=== PATIENT | male | born 1965 | race Caucasian/White ===

== ENCOUNTER → 2021-09-09 09:50 | Outpatient (BNVA) | payer BC, SELFPAY | PROVIDERS: Visit Provider Nurse Practitioner Family | DX: M25.511 Pain in right shoulder (principal); M25.512 Pain in left shoulder | CPT/HCPCS: 73030 ==

== ENCOUNTER → 2021-11-02 13:01 | Outpatient (BNVA) | payer BC, MEDICAID, SELFPAY | PROVIDERS: Family Provider Nurse Practitioner Family; Visit Provider Student in an Organized Health Care Education/Training Program | DX: M12.812 Other specific arthropathies, not elsewhere classified, left shoulder (principal); M75.41 Impingement syndrome of right shoulder; M25.512 Pain in left shoulder; G56.02 Carpal tunnel syndrome, left upper limb; M25.519 Pain in unspecified shoulder; M25.511 Pain in right shoulder | CPT/HCPCS: 20610; 73030; 99204; J3301 ==

== ENCOUNTER → 2022-02-22 12:31 | Outpatient (BNVA) | payer BC, MEDICAID, SELFPAY | PROVIDERS: Family Provider Nurse Practitioner Family; Visit Provider Student in an Organized Health Care Education/Training Program | DX: R20.0 Anesthesia of skin (principal); R20.2 Paresthesia of skin; M75.41 Impingement syndrome of right shoulder; M25.511 Pain in right shoulder; M25.512 Pain in left shoulder | CPT/HCPCS: 36415; 85651; 86140 ==

== ENCOUNTER → 2022-07-12 09:55 | Outpatient (BNVA) | payer BC, MEDICAID, SELFPAY | PROVIDERS: Family Provider Nurse Practitioner Family; PCP Nurse Practitioner Family; Referring Provider Internal Medicine; Visit Provider Internal Medicine | DX: M35.3 Polymyalgia rheumatica (principal); Z79.899 Other long term (current) drug therapy | CPT/HCPCS: 72100; 73502; 80053; 85025; 85651; 86140; 86160; 86162; 86200; 86235; 86255; 86376; 86704; 86803; 87340 ==

== ENCOUNTER 2024-07-19 09:46 | Inpatient (IN) | payer BC, SELFPAY ==
--- NOTE | 2024-07-19 09:47 | ECG_ITS ---
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 Measurements Intervals [place] Rate: 78 P: 34 [place]: 150 QRS: -69 QRSD: 101 T: 81 QT: 340 QTc: 387 Interpretive Statements SINUS RHYTHM PATTERN CONSISTENT WITH PULMONARY DISEASE LEFT ANTERIOR FASCICULAR BLOCK [QRS AXIS <= -45, QR IN I, RS IN II] NONSPECIFIC T-WAVE ABNORMALITY No previous ECG available for comparison Electronically Signed On 07-20-2024 13:43:56 CDT by Chao Uriarte M.D. [id number]
--- NOTE | 2024-07-19 09:47 | XR_ITS ---
WS: [id number] XR chest 1V portable [id number] REASON FOR EXAM: chest pain FINDINGS: Mild tortuosity of the thoracic aorta. Normal heart size. Calcified granulomatous disease bilaterally. No acute pulmonary parenchymal or pleural abnormality. Mild degenerative spondylosis in the thoracic spine. XR/XR chest 1V portable [id number] IMPRESSION: No acute chest abnormality.
[2024-07-19 09:58] VITALS: BP 150/91; PULSE 77; RESP 18; TEMP 36.8; O2SAT 98; BMI 28.1
--- NOTE | 2024-07-19 10:06 | W.ED.CHESTPA ---
Documented by User: SABINO Salgado 07/19/24 13:24 HPI - Chest Pain General: Chief Complaint: Chest Pain Stated Complaint: CP SOB Time Seen by Provider: 07/19/24 09:47 Source: patient and family Mode of arrival: ambulatory Limitations: no limitations History of Present Illness: Patient is a 58-year-old male presents to ED today along with his significant other for evaluation of chest pain. Patient states he has a history of coronary artery syndrome with 2 previous MIs and 2 previous cardiac stents. Last stent was placed in 2019. Patient states he has not had any cardiology follow-up following either one of his stents reporting lack of insurance. Patient states yesterday evening while watching TV he began developing substernal chest pain. He states he was diaphoretic and fatigued. He states he laid down to go to sleep around 6 to 7 PM which was uncharacteristic for him but could not sleep due to the discomfort. He states he took a total of 2 nitro which helped his discomfort and he was able to sleep. Patient states he felt good when he first awoke this morning but later noticed pain returned thus prompting his medical evaluation. He states he feels short of breath. He states with his previous MIs it felt like his chest was getting kicked by a horse. Today he states it feels different and that it feels like his rib cage is being torn apart. Pain does not seem to be reproducible with palpation or movement. He has not had any cough or recent URI. PMH significant for CAD, hyperlipidemia, daily smoking. No known history of hypertension although he is hypertensive upon arrival with a BP of 150/91. MD complaint: chest pain Pertinent past history: coronary artery disease and prior [place] Onset (ago): day(s) (yesterday evening) Timing of current episode: episodic Prior episodes: Yes Onset: during rest Pain location: substernal Pain radiation: none Severity: moderate Relieving factors: other (nitro) Exacerbating factors: nothing Associated symptoms: Reports dyspnea; Deny abdominal pain, fever(s), nausea, palpitations, syncope or vomiting Treatment prior to arrival: none Risk Factors: Coronary artery disease risk factors: smoking history and hyperlipidemia Thoracic aortic dissection risk factors: none Related Data Home Medications ?Medication ?Instructions ?Recorded ?Confirmed nitroglycerin 0.4 mg sublingual 0.4 mg sublingual Q5M PRN heart 07/19/24 07/19/24 tablet pain Previous Rx's ?Medication ?Instructions ?Recorded aspirin 81 mg tablet,delayed 81 mg PO DAILY #30 tabs 07/20/24 release (M[place]esh Low Dose Aspirin) clopidogrel 75 mg tablet 75 mg PO DAILY #30 tabs 07/20/24 pantoprazole 40 mg tablet,delayed 40 mg PO DAILY #30 tabs 07/20/24 release atorvastatin 40 mg tablet 40 mg PO QPM #30 tabs 07/21/24 carvedilol 3.125 mg tablet 3.125 mg PO BID #60 tabs 07/21/24 lisinopril 2.5 mg tablet 2.5 mg PO DAILY #30 tabs 07/21/24 Allergies Allergy/AdvReac Type Severity Reaction Status Date / Time No Known Allergies Allergy Verified 07/23/22 10:01 Review of Systems Const: Denies: fever(s) or chills Eyes: Denies: change in vision or blurry vision Card: Reports: chest pain; Denies: palpitations, irregular heart rhythm, edema, swelling of feet/ankles, lightheadedness, syncope, pre-syncope, dyspnea on exertion, orthopnea, leg pain with exertion or acrocyanosis Resp: Reports: dyspnea; Denies: productive cough, non-productive cough, wheezing, stridor, pain on inspiration, change in phlegm color, hemoptysis or chest congestion GI: Reports: heartburn (chronic); Denies: abdominal pain, nausea, vomiting or diarrhea : Denies: flank pain, difficulty urinating or dysuria Musc: Denies: neck pain, back pain, extremity pain, extremity swelling or joint pain Skin/Breast: Denies: rash Neuro: Denies: headache(s), numbness in extremities, weakness in extremities, sensory changes or dizziness PFS ED PFSH: Medical History Polymyalgia rheumatica Left carpal tunnel syndrome Rotator cuff arthropathy of left shoulder Rotator cuff impingement syndrome of right shoulder Bilateral shoulder pain Social History Smoking and tobacco/nicotine status: never used tobacco/nicotine Alcohol intake: never Substance/Drug Use: never Physical Exam Const: COMMON NORMALS: no acute distress, average body habitus, patient oriented x3, no limitations, healthy appearing, alert and well nourished GENERAL APPEARANCE: cooperative ORIENTATION/CONSCIOUSNESS: Yes awake, Yes oriented to person, Yes oriented to place and Yes oriented to time HENMT: COMMON NORMALS: normocephalic and atraumatic HEAD & SCALP: normal to inspection, normocephalic and atraumatic Neck/C-Spine: COMMON NORMALS: full ROM, no lymphadenopathy, supple and no meningeal signs Chest: COMMONS NORMALS: normal inspection of the chest Resp: COMMON NORMALS: normal respiratory effort and clear to auscultation bilaterally AUSCULTATION: clear to auscultation bilaterally Cardio: COMMON NORMALS: regular rate and regular rhythm RATE: regular rate RHYTHM: regular rhythm GI: COMMON NORMALS: Normal to inspection, nondistended, normoactive bowel sounds present, Soft to palpation, non-tender, No hepatosplenomegaly present and no masses PALPATION: Yes Soft to palpation and Yes No hepatosplenomegaly present : COMMON NORMALS: Yes no CVA tenderness BLADDER/KIDNEY EXAM: Yes no CVA tenderness Back/Pelvis: COMMON NORMALS: no CVA tenderness and thoracic and lumbar spine normal to inspection Extremity: COMMON NORMALS: normal to inspection, capillary refill normal, no clubbing, cyanosis or edema, no calf tenderness and no pedal edema GENERAL: Yes normal exam except as noted Neuro: COMMON NORMALS: patient oriented x3, moves all extremities, no focal motor deficits and no sensory deficits noted SENSORIUM/ORIENTATION: Yes alert, Yes oriented to person, Yes oriented to place and Yes oriented to time MENINGEAL SIGNS: Yes no meningeal signs Skin: COMMON NORMALS: no rashes or lesions noted GENERAL SKIN EXAM: no rashes or lesions noted Course Consultations: Consultation #1: Dr. Butterfield-accepts hospitalization to [facility] Vital Signs: Vital signs: Vital Signs Temperature 98.2 F 07/21/24 07:42 Pulse Rate 86 07/21/24 11:48 Respiratory Rate 16 07/21/24 11:48 Blood Pressure 123/94 07/21/24 11:48 Pulse Oximetry 94 07/21/24 11:48 Oxygen Delivery Me thod Room Air 07/21/24 07:42 MDM - Chest Pain Medical Decision Making The patient is a 58-year-old male here for concerns of chest pain that was alleviated by nitroglycerin yesterday. Chest pain started again this morning after awakening. It is again alleviated by nitro here in the emergency department. Patient has previous history of coronary artery disease with 2 previous cardiac stents, he is an everyday smoker, known hyperlipidemia noncompliant on his medications. Denies history of hypertension although has carvedilol and lisinopril listed on medications and has been hypertensive here. He is not taking carvedilol and lisinopril at home. At this point due to patient's history and risk factors I think he requires hospitalization for stress testing/cardiac rule out. His EKG showing nonspecific T wave abnormalities. His troponins are unremarkable. Heart score at this time would be 6. Spoke to hospitalist Dr. Butterfield who will admit to CSU. Dr. Sahu aware of patient will place admit orders. Medical Records I reviewed the patient's medical records. Lab Data I reviewed the patient's lab results. 07/21/24 03:00 07/21/24 04:49 Radiology Impressions Chest X-Ray 07/19/24 09:47 IMPRESSION: No acute chest abnormality. Laboratory Results WBC 10.54 10^3/uL (3.29-11.43) 07/20/24 03:02 RBC 4.68 10^6/uL (3.85-5.65) 07/20/24 03:02 Hgb 14.00 g/dL (11.27-16.99) 07/20/24 03:02 Hct 45.1 % (37-53) 07/20/24 03:02 MCV 96.4 fl (82-101) 07/20/24 03:02 MCH 29.9 pg (27-33) 07/20/24 03:02 MCHC 31.0 g/dL (30-55) 07/20/24 03:02 RDW 14.2 % (12.1-15.1) 07/20/24 03:02 Plt Count 297 10^3/cmm (157-399) 07/20/24 03:02 MPV 8.9 fL (7.4-10.4) 07/20/24 03:02 Neut % (Auto) 56.5 % 07/20/24 03:02 Lymph % (Auto) 33.3 % 07/20/24 03:02 [place] % (Auto) 7.6 % 07/20/24 03:02 Eos % (Auto) 1.9 % 07/20/24 03:02 Baso % (Auto) 0.4 % 07/20/24 03:02 Neut # (Auto) 5.96 10^3/uL (1.8-7.7) 07/20/24 03:02 Lymph # (Auto) 3.5 10^3/uL (0.8-4.8) 07/20/24 03:02 [place] # (Auto) 0.8 10^3/uL (0.2-0.9) 07/20/24 03:02 Eos # (Auto) 0.2 10^3/uL (0.0-0.8) 07/20/24 03:02 Baso # (Auto) 0.0 10^3/uL (0.0-0.1) 07/20/24 03:02 Nucleated RBC % (auto) 0 % 07/20/24 03:02 Nucleated RBCs # 0.0 /100WBC 07/20/24 03:02 Sodium 141 mmol/L (136-145) 07/20/24 03:02 Potassium 4.1 mmol/L (3.5-5.1) 07/20/24 03:02 Chloride 108 mmol/L (98-107) H 07/20/24 03:02 Carbon Dioxide 23 mmol/L (22-29) 07/20/24 03:02 Anion Gap 14.1 (5-19) 07/20/24 03:02 BUN 14 mg/dL (6-20) 07/20/24 03:02 Creatinine 1.0 mg/dL (0.7-1.2) 07/20/24 03:02 GFR Calculation 77.0 mL/min (90-130) L 07/20/24 03:02 Glucose 107 mg/dL (65-115) 07/20/24 03:02 Estimat Average Glucose 131 07/19/24 10:04 Hemoglobin A1c 6.2 % (4.0-6.0) H 07/19/24 10:04 Calculated Osmolality 293 mOsm/kg (285-295) 07/20/24 03:02 Calcium 8.6 mg/dL (8.5-10.5) 07/20/24 03:02 Magnesium 2.1 mg/dL (1.7-2.3) 07/20/24 03:02 Total Bilirubin 0.4 mg/dL (0.15-1.2) 07/20/24 03:02 AST 16 U/L (0-40) 07/20/24 03:02 ALT 12 U/L (0-41) 07/20/24 03:02 Alkaline Phosphatase 110 U/L (40-130) 07/20/24 03:02 Troponin T Baseline 14 ng/L (0-15) 07/19/24 10:04 Troponin T 120 Minute 13.58 ng/L (0-15) 07/19/24 11:57 Delta Troponin T -0.42 ABS# (0-10) L 07/19/24 11:57 Troponin T Hi Sens 6Hr 16.12 ng/L (0-15) H 07/19/24 15:48 Troponin T Hi Sens 6Hr Delta 2.12 ng/L (0-12) 07/19/24 15:48 Total Protein 6.7 g/dL (6.6-8.7) 07/20/24 03:02 Albumin 3.6 g/dL (3.5-5.2) 07/20/24 03:02 Globulin 3.1 g/dL (1.3-4.6) 07/20/24 03:02 Triglycerides 136 mg/dL (0-150) 07/19/24 10:04 Cholesterol 212 mg/dL (0-200) H 07/19/24 10:04 LDL Cholesterol, Calc 145 mg/dL (50-129) H 07/19/24 10:04 HDL Cholesterol 40 mg/dL (60-100) L 07/19/24 10:04 LDL/HDL Ratio 3.63 RATIO (0.00-3.22) H 07/19/24 10:04 Cholesterol/HDL Ratio 5.30 mg/dL (1.0-5.00) H 07/19/24 10:04 TSH 3.89 uIU/mL (0.27-4.20) 07/19/24 10:04 All radiology interpretation(s) finalized by discharge Discharge Plan Discharge Patient Disposition: Admitted As Inpatient Admit Provider: Jaja Butterfield Clinical Impression: Chest pain CAD (coronary artery disease) Qualifiers: Coronary Disease-Associated Artery/Lesion type: unspecified vessel or lesion type [place] vs. 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[place] [employer] Documented by User: Benito Sahu DO 07/23/24 06:20 HPI - Chest Pain General: Chief Complaint: Chest Pain Stated Complaint: CP SOB Time Seen by Provider: 07/19/24 09:47 Related Data Home Medications ?Medication ?Instructions ?Recorded ?Confirmed nitroglycerin 0.4 mg sublingual 0.4 mg sublingual Q5M PRN heart 07/19/24 07/19/24 tablet pain Previous Rx's ?Medication ?Instructions ?Recorded aspirin 81 mg tablet,delayed 81 mg PO DAILY #30 tabs 07/20/24 release ([place] Low Dose Aspirin) clopidogrel 75 mg tablet 75 mg PO DAILY #30 tabs 07/20/24 pantoprazole 40 mg tablet,delayed 40 mg PO DAILY #30 tabs 07/20/24 release atorvastatin 40 mg tablet 40 mg PO QPM #30 tabs 07/21/24 carvedilol 3.125 mg tablet 3.125 mg PO BID #60 tabs 07/21/24 lisinopril 2.5 mg tablet 2.5 mg PO DAILY #30 tabs 07/21/24 Allergies Allergy/AdvReac Type Severity Reaction Status Date / Time No Known Allergies Allergy Verified 07/23/22 10:01 PFSH ED PFSH: Medical History Polymyalgia rheumatica Left carpal tunnel syndrome Rotator cuff arthropathy of left shoulder Rotator cuff impingement syndrome of right shoulder Bilateral shoulder pain Social History Smoking and tobacco/nicotine status: never used tobacco/nicotine Alcohol intake: never Substance/Drug Use: never Course Vital Signs: Vital signs: Vital Signs Temperature 98.2 F 05/10/25 07:42 Pulse Rate 86 07/21/24 11:48 Respiratory Rate 16 07/21/24 11:48 Blood Pressure 123/94 07/21/24 11:48 Pulse Oximetry 94 07/21/24 11:48 Oxygen Delivery Me thod Room Air 07/21/24 07:42 MDM - Chest Pain Medical Decision Making The patient is a 58-year-old male here for concerns of chest pain that was alleviated by nitroglycerin yesterday. Chest pain started again this morning after awakening. It is again alleviated by nitro here in the emergency department. Patient has previous history of coronary artery disease with 2 previous cardiac stents, he is an everyday smoker, known hyperlipidemia noncompliant on his medications. Denies history of hypertension although has carvedilol and lisinopril listed on medications and has been hypertensive here. He is not taking carvedilol and lisinopril at home. At this point due to patient's history and risk factors I think he requires hospitalization for stress testing/cardiac rule out. His EKG showing nonspecific T wave abnormalities. His troponins are unremarkable. Heart score at this time would be 6. Spoke to hospitalist Dr. Butterfield who will admit to CSU. Dr. Sahu aware of patient will place admit orders. Chart reviewed and patient discussed with midlevel. Agree with assessment and plan. Lab Data 07/21/24 03:00 07/21/24 04:49 Radiology Impressions Chest X-Ray 07/19/24 09:47 IMPRESSION: No acute chest abnormality. Laboratory Results WBC 10.54 10^3/uL (3.29-11.43) 07/20/24 03:02 RBC 4.68 10^6/uL (3.85-5.65) 07/20/24 03:02 Hgb 14.00 g/dL (11.27-16.99) 07/20/24 03:02 Hct 45.1 % (37-53) 07/20/24 03:02 MCV 96.4 fl (82-101) 07/20/24 03:02 MCH 29.9 pg (27-33) 07/20/24 03:02 MCHC 31.0 g/dL (30-55) 07/20/24 03:02 RDW 14.2 % (12.1-15.1) 07/20/24 03:02 Plt Count 297 10^3/cmm (157-399) 07/20/24 03:02 MPV 8.9 fL (7.4-10.4) 07/20/24 03:02 Neut % (Auto) 56.5 % 07/20/24 03:02 Lymph % (Auto) 33.3 % 07/20/24 03:02 [place] % (Auto) 7.6 % 07/20/24 03:02 Eos % (Auto) 1.9 % 07/20/24 03:02 Baso % (Auto) 0.4 % 07/20/24 03:02 Neut # (Auto) 5.96 10^3/uL (1.8-7.7) 07/20/24 03:02 Lymph # (Auto) 3.5 10^3/uL (0.8-4.8) 07/20/24 03:02 [place] # (Auto) 0.8 10^3/uL (0.2-0.9) 07/20/24 03:02 Eos # (Auto) 0.2 10^3/uL (0.0-0.8) 07/20/24 03:02 Baso # (Auto) 0.0 10^3/uL (0.0-0.1) 07/20/24 03:02 Nucleated RBC % (auto) 0 % 07/20/24 03:02 Nucleated RBCs # 0.0 /100WBC 07/20/24 03:02 Sodium 141 mmol/L (136-145) 07/20/24 03:02 Potassium 4.1 mmol/L (3.5-5.1) 07/20/24 03:02 Chloride 108 mmol/L (98-107) H 07/20/24 03:02 Carbon Dioxide 23 mmol/L (22-29) 07/20/24 03:02 Anion Gap 14.1 (5-19) 07/20/24 03:02 BUN 14 mg/dL (6-20) 07/20/24 03:02 Creatinine 1.0 mg/dL (0.7-1.2) 07/20/24 03:02 GFR Calculation 77.0 mL/min (90-130) L 07/20/24 03:02 Glucose 107 mg/dL (65-115) 07/20/24 03:02 Estimat Average Glucose 131 07/19/24 10:04 Hemoglobin A1c 6.2 % (4.0-6.0) H 07/19/24 10:04 Calculated Osmolality 293 mOsm/kg (285-295) 07/20/24 03:02 Calcium 8.6 mg/dL (8.5-10.5) 07/20/24 03:02 Magnesium 2.1 mg/dL (1.7-2.3) 07/20/24 03:02 Total Bilirubin 0.4 mg/dL (0.15-1.2) 07/20/24 03:02 AST 16 U/L (0-40) 07/20/24 03:02 ALT 12 U/L (0-41) 07/20/24 03:02 Alkaline Phosphatase 110 U/L (40-130) 07/20/24 03:02 Troponin T Baseline 14 ng/L (0-15) 07/19/24 10:04 Troponin T 120 Minute 13.58 ng/L (0-15) 07/19/24 11:57 Delta Troponin T -0.42 ABS# (0-10) L 07/19/24 11:57 Troponin T Hi Sens 6Hr 16.12 ng/L (0-15) H 07/19/24 15:48 Troponin T Hi Sens 6Hr Delta 2.12 ng/L (0-12) 07/19/24 15:48 Total Protein 6.7 g/dL (6.6-8.7) 07/20/24 03:02 Albumin 3.6 g/dL (3.5-5.2) 07/20/24 03:02 Globulin 3.1 g/dL (1.3-4.6) 07/20/24 03:02 Triglycerides 136 mg/dL (0-150) 07/19/24 10:04 Cholesterol 212 mg/dL (0-200) H 07/19/24 10:04 LDL Cholesterol, Calc 145 mg/dL (50-129) H 07/19/24 10:04 HDL Cholesterol 40 mg/dL (60-100) L 07/19/24 10:04 LDL/HDL Ratio 3.63 RATIO (0.00-3.22) H 07/19/24 10:04 Cholesterol/HDL Ratio 5.30 mg/dL (1.0-5.00) H 07/19/24 10:04 TSH 3.89 uIU/mL (0.27-4.20) 07/19/24 10:04 Discharge Plan Discharge Patient Disposition: Admitted As Inpatient Admit Provider: Jaja Butterfield Clinical Impression: Chest pain CAD (coronary artery disease) Qualifiers: Coronary Disease-Associated Artery/Lesion type: unspecified vessel or lesion type [place] vs. 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
[2024-07-19 10:11] LABS: Basophils # 0.1 10^3/uL (0.0-0.1); Basophils % 0.5 %; Eosinophils # 0.1 10^3/uL (0.0-0.8); Eosinophils % 1.1 %; Hematocrit 49.3 % (37-53); Lymphocytes # 3.3 10^3/uL (0.8-4.8); Lymphocytes % 28.8 %; Mean Corpuscular Hemoglobin 30.7 pg (27-33); Mean Corpuscular Volume 95.9 fl (82-101); Mean Platelet Volume 8.6 fL (7.4-10.4); Monocytes # 0.8 10^3/uL (0.2-0.9); Monocytes % 6.8 %; Neutrophils # 7.13 10^3/uL (1.8-7.7); Neutrophils % 62.5 %; Nucleated Red Blood Cells % 0 %; Platelet Count 324 10^3/cmm (157-399); Red Blood Count 5.14 10^6/uL (3.85-5.65); Red Cell Distribution Width 14.4 % (12.1-15.1)
[2024-07-19] MEDS: nitroglycerin 0.4 mg sublingual Tablet SUBLINGUAL (10:20)
[2024-07-19 10:27] LABS: Troponin(5th) Baseline 14 ng/L (0-15)
[2024-07-19 10:31] LABS: Alanine Aminotransferase 14 U/L (0-41); Albumin Level 4.3 g/dL (3.5-5.2); Alkaline Phosphatase 133 U/L (40-130); Anion Gap 18.2 (5-19); Aspartate Amino Transferase 14 U/L (0-40); Blood Urea Nitrogen 12 mg/dL (6-20); Calcium 9.5 mg/dL (8.5-10.5); Carbon Dioxide 24 mmol/L (22-29); Chloride 104 mmol/L (98-107); Creatinine Clr Calc Pharmacy 83.3675; Globulin 3.1 g/dL (1.3-4.6); Glucose 108 mg/dL (65-115); Osmolality Calculated 294 mOsm/kg (285-295); Potassium 4.2 mmol/L (3.5-5.1); Sodium 142 mmol/L (136-145); Total Bilirubin 0.7 mg/dL (0.15-1.2); Total Protein 7.4 g/dL (6.6-8.7)
--- NOTE | 2024-07-19 10:32 | PC.PHAR ---
Patient states he doesn't take his medication regularly . Spouse had a bag with medications that patient states he takes once in a while. Patient states he didn't have insurance for a little bit . I listed all medications in the bag . Last fill dates are all 07/18/2020. Medication are very old, and have .
[2024-07-19] MEDS: lidocaine 2% viscous 15 ML, aluminum-mag hydrox-simethicon 30 ML, sucralfate oral liq 1 GM PO (11:29)
[2024-07-19 12:29] LABS: Troponin 5 2HR 13.58 ng/L (0-15)
[2024-07-19 12:32] LABS: Troponin 5 2HR Delta -0.42 ABS# (0-10)
--- NOTE | 2024-07-19 12:51 | ECG_ITS ---
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
[2024-07-19] MEDS: carvedilol 3.125 mg Tablet PO ×2 (13:40→20:40)
[2024-07-19] MEDS: lisinopril 2.5 mg Tablet PO (13:40)
[2024-07-19 13:41] VITALS: BP 144/100; PULSE 80; RESP 16; O2SAT 98
--- NOTE | 2024-07-19 14:53 | PM.HP ---
Providers/Chief Complaint Admitting Physician: Jaja Butterfield MD Primary Care Provider: Yen Camarena Chief Complaint: CP SOB History of Present Illness Filipe Mcginnis is a 58 year old male With past medical history of polymyalgia rheumatica, left carpal tunnel syndrome, rotator cuff arthropathy of left shoulder and right shoulder, bilateral shoulder pain, CAD status post 2 stents and CA twice in the past 2011 and 2018. Patient currently has 2 stents diagonal branch and second place unknown presented to the hospital for chest pain. He states he had his first angiogram done at [facility] in 2011 and second 1 at [facility] in 2019. He says he has been having chest pain since yesterday which was associated with sweating vomiting and nausea. He took 2 nitros 5 to 10 minutes apart and the pain improved. Subsequently he had a good day went to sleep and when he woke up the pain restarted which was again associated with sweating. He states right now he is chest pain-free. He received nitro in the hospital and received a GI cocktail. He states he has a history of hiatal hernia and my stomach is very messed up . I have had stomach issues all my life. He states that every time he takes a blood thinner specifically the Plavix after a few days he starts to have rectal bleed which is usually very dark. At 1 point he called it motor oil in the past. Somewhat of a poor historian. He states that he used to be on ranitidine in the past however it was taken off the market as per patient therefore since then he has not been in any kind of anti-GERD agents. He states no one has ever addressed his heartburn . Furthermore patient states that he believes that the tablets are very tough on his stomach and every 1 to 3 months he may have rectal bleed. He is not sure if he has hemorrhoids. He has never had EGD colonoscopy. I discussed with him the possibility of EGD colonoscopy for further investigation including the possibility of a cardiac stress test. Patient states that he is very worried and anxious and stressed out now that I am discussing all this with him. He states nobody has ever told him that he would possibly need these tests. I discussed with him that he has a right to decline certain care however would be my recommendation to further investigate GERD, fecal occult blood test with the possibility of EGD colonoscopy prior to having a coronary angiogram. I discussed with him in detail that if he does receive a stent and is unable to take aspirin Plavix for at least 1 year there is a risk of stent thrombosis. For now we decided we will proceed with stress testing in a.m. patient's is present at bedside. Patient previously did not have insurance but now has it and therefore was lost to follow-up at 1 point. Medications/Allergies Home Medications ?Medication ?Instructions ?Recorded ?Confirmed ?Last Taken ?Type aspirin 81 mg tablet,delayed 81 mg PO DAILY 07/19/24 07/19/24 07/16/24 History release (Mukesh Low Dose Aspirin) atorvastatin 40 mg tablet 40 mg PO QPM 07/19/24 07/19/24 07/16/24 History carvedilol 3.125 mg tablet 3.125 mg PO BID 07/19/24 07/19/24 Unknown History lisinopril 2.5 mg tablet 2.5 mg PO DAILY 07/19/24 07/19/24 Unknown History nitroglycerin 0.4 mg sublingual 0.4 mg sublingual Q5M PRN heart 07/19/24 07/19/24 07/18/24 20:00 History tablet pain Allergies Allergy/AdvReac Type Severity Reaction Status Date / Time No Known Allergies Allergy Verified 07/23/22 10:01 PFSH Acute PFSH: Medical History Polymyalgia rheumatica Left carpal tunnel syndrome Rotator cuff arthropathy of left shoulder Rotator cuff impingement syndrome of right shoulder Bilateral shoulder pain Social History Smoking and tobacco/nicotine status: never used tobacco/nicotine Alcohol intake: never Substance/Drug Use: never Vitals/I&O/Wt Last Vital Signs Temp 98.2 F 07/19/24 09:58 Pulse 80 07/19/24 13:41 Resp 16 07/19/24 13:41 BP 144/100 07/19/24 13:41 Pulse Ox 98 07/19/24 13:41 O2 Del Method Room Air 07/19/24 13:41 Weight last 48 hrs Weight 81.647 kg Physical Exam Narrative: General: Alert oriented x3, patient seen sitting up in bed appearing comfortable at this time with at bedside. No conversational dyspnea on denies any chest pain at this time. HEENT: Normocephalic, atraumatic, EOMI, breathing room air. Cardio: Regular rate rhythm, normal S1-S2, Respiratory: Good bilateral air entry, no wheezes no rhonchi appreciated GI: Abdomen soft, nontender, nondistended, bowel sounds + Behavior: Appropriate and cooperative Extremities: Pulses 2+, no edema, no cyanosis Data 07/19/24 10:04 07/19/24 10:04 A&P Assessment and plan (1) Chest pain: (2) CAD (coronary artery disease): (3) Polymyalgia rheumatica: (4) HLD (hyperlipidemia): (5) History of CA (myocardial infarction): (6) Status post percutaneous transluminal angioplasty ([employer]) with stent placement: Plan #Typical chest pain, possibly unstable angina #GERD #History of hiatal hernia #History of polymyalgia rheumatica #Known CAD status post PCI x 2, status post 2 MIs #Hyperlipidemia #Intermittent dark stools every 1 to 3 months if taking aspirin Plavix together however currently not having any issues - Troponins ordered. [place] at 2 hours negative ? Continue aspirin atorvastatin carvedilol lisinopril ? Nitropaste every 6 hours as needed if chest pain recurs ? GI cocktail to be ordered if chest pain recurs ? Patient quite anxious and worried at this time after discussing his care with myself. Blood pressure 178/111. I believe this is due to stress. He does not carry a history of hypertension. We will continue to monitor and recheck blood pressure in 30 minutes. ? He does state that he has had intermittent dark stools in the past especially when he takes both aspirin and Plavix which will occur every 1 to 3 months. I recommended him further workup with EGD colonoscopy however he states he does not want to do those as this is stressing him out because he does not want to be diagnosed with cancer. He also further states that he also would like to know what the diagnosis is. At this time he is undecided on further procedures. This may be done as an outpatient at a later time. Patient does not have active rectal bleed at this time. ? I will order Protonix 40 oral daily ? Repeat EKG if chest pressure recurs. ? Most likely his chest pain is secondary to cardiac cause given his presentation of nausea diaphoresis and the fact that it was relieved by nitro. ? I will discuss with cardiology prior to ordering stress test. Consult cardiology. - Check TSH, hemoglobin A1c, lipid profile. Full code DVT prophylaxis: Heparin SQ twice daily PDMP PDMP Reviewed: Not Reviewed Attestations Medical Necessity Statement*: Observation admission for chest pain. Possible less than 48 hours stay expected. Diagnoses Chest pain R07.9 Chest pain type: unspecified CAD (coronary artery disease) I25.119 Associated angina: with unspecified form of angina Coronary Disease-Associated Artery/Lesion type: unspecified vessel or lesion type [place] vs. transplanted heart: [place] heart Polymyalgia rheumatica M35.3 HLD (hyperlipidemia) E78.5 History of CA (myocardial infarction) I25.2 Status post percutaneous transluminal angioplasty ([employer]) with stent placement Z95.820
[2024-07-19 15:05] VITALS: BP 156/98; PULSE 66; O2SAT 94
[2024-07-19] MEDS: sodium chloride 0.9% 1,000 ML 100 ML IV ×2 (15:13→17:55)
[2024-07-19] MEDS: heparin 5,000 unit/mL INJ 1 mL 5000 UNIT SUBCUT (15:14)
--- NOTE | 2024-07-19 15:47 | ECG_ITS ---
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: : 1965 Requested By: Malinda Bolaños Order Number: [id number] Reading MD: ABIMAEL SERNA Measurements Intervals [place] Rate: 66 P: 40 UT: 161 QRS: -61 QRSD: 94 T: 76 QT: 356 QTc: 376 Interpretive Statements SINUS RHYTHM LEFT AXIS DEVIATION [QRS AXIS < -30] PATTERN CONSISTENT WITH PULMONARY DISEASE NONSPECIFIC T-WAVE ABNORMALITY Compared to ECG 07/19/2024 12:51:59 Left-axis deviation now present Left anterior fascicular block no longer present T-wave abnormality still present Electronically Signed On 07-21-2024 16:29:18 CDT by ABIMAEL SERNA [email or web address]
[2024-07-19 16:08] LABS: Cholesterol 212 mg/dL (0-200); HDL Cholesterol 40 mg/dL (60-100); LDL Cholesterol Calculated 145 mg/dL (50-129); LDL HDL Ratio 3.63 RATIO (0.00-3.22); Thyroid Stimulating Hormone 3.89 uIU/mL (0.27-4.20); Triglycerides 136 mg/dL (0-150)
[2024-07-19 16:12] LABS: Troponin 5 6HR 16.12 ng/L (0-15); Troponin 5 6HR Delta 2.12 ng/L (0-12)
[2024-07-19 16:18] LABS: Estmated Average Glucose 131; Hemoglobin A1C 6.2 % (4.0-6.0)
[2024-07-19 16:38] VITALS: BP 178/111; PULSE 75; O2SAT 94
--- NOTE | 2024-07-19 17:43 | USCV_ITS ---
Filipe Mcginnis Age: 58 Gender: M : 1965 Exam Date: 07/19/2024 18:41 Ordering Phys: Jaja Butterfield MD Technologist: JEROD [place]am [place] [facility] [place] Indication: chest pain, history of CAD s/p stents BP: 178 / 111 HR: 73 Rhythm: Sinus Technical Quality: Adequate MEASUREMENTS (Male / Female) Normal Values 2D ECHO LV Diastolic Diameter PLAX 4.4 cm 4.2 - 5.9 / 3.9 - 5.3 cm IVS Diastolic Thickness 1.7 cm 0.6 - 1.0 / 0.6 - 0.9 cm IVS Systolic Thickness 1.7 cm LVPW Diastolic Thickness 1.6 cm 0.6 - 1.0 / 0.6 - 0.9 cm LVPW Systolic Thickness 2.5 cm LVOT Diameter 1.8 cm LV Ejection Fraction 2D Teich 61.9 % LV Ejection Fraction MOD 4C 62.5 % LV Ejection Fraction MOD 2C 52.6 % LV Ejection Fraction 2C AL 52.4 % LA Diameter 2.5 cm Aorta at Sinotubular Diameter 2.5 cm IVC Diameter 1.9 cm M-MODE LA Ao Ratio MM 1.3 AV Cusp Separation MM 1.8 cm DOPPLER AV Peak Velocity 156.0 cm/s LVOT Peak Velocity 108.0 cm/s AV Area Cont Eq vti 2.0 cm squared AV Area Cont Eq pk 1.7 cm squared MV Peak Velocity 94.0 cm/s MV Area PHT 3.0 cm squared Mitral E to A Ratio 0.9 TV Peak E Velocity 56.0 cm/s PV Peak Velocity 89.0 cm/s FINDINGS Left Ventricle Normal left ventricular size, systolic function and wall thickness,abnormal septal motion consistent with conduction abnormality. . Left ventricular ejection fraction is estimated at 55 %. Grade I/IV diastolic dysfunction (abnormal relaxation filling pattern), normal to mildly elevated filling pressures. Right Ventricle The right ventricle is normal in size and function. Right Atrium The right atrium is normal in size. Left Atrium The left atrium is normal in size. Mitral Valve Thickened mitral valve. No mitral valve stenosis. Mild mitral valve regurgitation. Aortic Valve Mild aortic valve calcification. Mild aortic valve regurgitation. Tricuspid Valve Structurally normal tricuspid valve without significant stenosis or regurgitation. Pulmonary artery systolic pressure is normal. Pulmonic Valve Structurally normal pulmonic valve without significant stenosis. There is no pulmonic regurgitation. Pericardium Normal pericardium without effusion. Aorta Normal ascending aorta dimension. IVC The inferior vena cava appears normal. CONCLUSIONS Normal left ventricular size, systolic function and wall thickness,abnormal septal motion consistent with conduction abnormality. . Left ventricular ejection fraction is estimated at 55 %. Grade I/IV diastolic dysfunction (abnormal relaxation filling pattern), normal to mildly elevated filling pressures. Thickened mitral valve. No mitral valve stenosis. Mild mitral valve regurgitation. There is no pericardial effusion. Right atrial pressure is around 5 mm of mercury. Erick Ceballos MD (Electronically Signed) Final Date: 20 Jul 2024 17:16 S
[2024-07-19 17:46] VITALS: BMI 30.2
[2024-07-19] MEDS: atorvastatin 40 mg Tablet PO (17:55)
[2024-07-19] MEDS: clopidogrel 75 mg Tablet PO (17:55)
--- NOTE | 2024-07-19 18:33 | PC.NURSE ---
admitted in to room 111-2 from er via stretcher at 1735.report received.pt is alert and oriented x 4.denies chest pain at this time.sr on monitor.oriented to room environment.instructed to notify staff for any chest pain,sob,or for any concerns at all.pt verb understanding of instructions
[2024-07-19 20:23] VITALS: BP 149/87; PULSE 76; RESP 18; TEMP 37; O2SAT 94
[2024-07-19] MEDS: enoxaparin 100 mg/mL Syringe 90 MG SUBCUT (20:40)
[2024-07-19] MEDS: nicotine 21 mg Patch 1 PATCH TRANSDERMA (20:41)
[2024-07-20] VITALS (15 sets, daily range): BP systolic 126–154; BP diastolic 81–99; PULSE 70–90; RESP 11–29; TEMP 36.6–37; O2SAT 94–97; BMI 30.2
[2024-07-20 03:17] LABS: Basophils % 0.4 %; Eosinophils # 0.2 10^3/uL (0.0-0.8); Eosinophils % 1.9 %; Hematocrit 45.1 % (37-53); Lymphocytes # 3.5 10^3/uL (0.8-4.8); Lymphocytes % 33.3 %; Mean Corpuscular Hemoglobin 29.9 pg (27-33); Mean Corpuscular Volume 96.4 fl (82-101); Mean Platelet Volume 8.9 fL (7.4-10.4); Monocytes # 0.8 10^3/uL (0.2-0.9); Monocytes % 7.6 %; Neutrophils # 5.96 10^3/uL (1.8-7.7); Neutrophils % 56.5 %; Nucleated Red Blood Cells % 0 %; Platelet Count 297 10^3/cmm (157-399); Red Blood Count 4.68 10^6/uL (3.85-5.65); Red Cell Distribution Width 14.2 % (12.1-15.1); White Blood Count 10.54 10^3/uL (3.29-11.43)
[2024-07-20 03:34] LABS: Alanine Aminotransferase 12 U/L (0-41); Albumin Level 3.6 g/dL (3.5-5.2); Alkaline Phosphatase 110 U/L (40-130); Aspartate Amino Transferase 16 U/L (0-40); Blood Urea Nitrogen 14 mg/dL (6-20); Calcium 8.6 mg/dL (8.5-10.5); Carbon Dioxide 23 mmol/L (22-29); Chloride 108 mmol/L (98-107); Creatinine Clr Calc Pharmacy 86.0862; Globulin 3.1 g/dL (1.3-4.6); Glucose 107 mg/dL (65-115); Magnesium 2.1 mg/dL (1.7-2.3); Osmolality Calculated 293 mOsm/kg (285-295); Sodium 141 mmol/L (136-145); Total Bilirubin 0.4 mg/dL (0.15-1.2); Total Protein 6.7 g/dL (6.6-8.7)
[2024-07-20 03:40] LABS: Anion Gap 14.1 (5-19); Potassium 4.1 mmol/L (3.5-5.1)
[2024-07-20] MEDS: aspirin 81 mg EC Tablet PO (08:04)
[2024-07-20] MEDS: carvedilol 3.125 mg Tablet PO ×2 (08:04→20:23)
[2024-07-20] MEDS: nicotine 21 mg Patch 1 PATCH TRANSDERMA (08:04)
[2024-07-20] MEDS: clopidogrel 75 mg Tablet PO (08:04)
[2024-07-20] MEDS: lisinopril 2.5 mg Tablet PO (08:05)
[2024-07-20] MEDS: pantoprazole DR 40 mg Tablet PO (08:05)
[2024-07-20] MEDS: sodium chloride 0.9% 1,000 ML 100 ML IV ×2 (08:06→15:51)
--- NOTE | 2024-07-20 10:51 | P.CONIM_ITS ---
<Statement entered by Erick Ceballos MD - 07/20/24 18:12> Patient was evaluated and cared for in conjunction with an advanced practice practitioner. I personally examined the patient and reviewed the chart and all pertinent data including imaging, telemetry, and laboratory results. I discussed the patient in detail with the advanced practice practitioner. Please see their note for complete H&P testing result and agreed upon plan of care for the patient. Patient underwent left heart catheterization noted to have significant obtuse marginal 2 in-stent severe stenosis treated with single drug-eluting stent postdilated noncompliant balloon. GENERAL: Patient is alert, awake and oriented x3. HEART: Regular S1 and S2. No murmur, rub or gallop. LUNGS: Clear to auscultate bilaterally. CENTRAL NERVOUS SYSTEM: Grossly nonfocal. EXTREMITIES: Lower extremities with out edema bilaterally. Assessment and plan Unstable angina status post drug-eluting stent to obtuse marginal 2 with excellent angiographic result Hypertension Hyperlipidemia Continue aspirin statin beta-bliare and Plavix. Check CBC BMP in the morning Continue IV fluid overnight 100 mL/h Possible discharge tomorrow Providers/Reason For Consult 2 Consulting Physician/Specialty*: Dr Miriam Ceballos, cardiology Reason for Consult*: Chest pain Requesting Physician: Jaja Butterfield MD Attending Physician: Jaja Butterfield MD Primary Care Provider: Yen Camarena History of Present Illness History of Present Illness Filipe Mcginnis is a 58 year old male past medical history of CAD, [place] and stent in 2012 in 2019, most recently performed at [facility]. He presented to the emergency room yesterday with chest pain, diaphoresis, nausea and vomiting. The chest pain began 2 nights ago resolved with nitroglycerin and he went to sleep. He woke up feeling well and chest pain recurred later in the day with the same symptoms. He has history of some bloody stools when he used Plavix previously, never requiring blood transfusion and no endoscopy workup has been done, patient does not desire it. Troponin series: 14->13->16. EKG shows sinus rhythm with nonspecific T wave changes. Echocardiogram pending. Review of Systems 2 Const: Denies: fever(s), chills, change in weight, fatigue or diaphoresis Eyes: Denies: change in vision ENMT: Denies: epistaxis Card: Reports: chest pain; Denies: palpitations, irregular heart rhythm, edema, syncope, pre-syncope, dyspnea on exertion, orthopnea or leg pain with exertion Resp: Denies: dyspnea, productive cough or wheezing GI: Denies: nausea, vomiting, hematemesis, hematochezia or melena : Denies: hematuria Musc: Denies: extremity swelling Kristian/Lymph: Denies: easy bruising or easy bleeding Medications/Allergies Home Medications ?Medication ?Instructions ?Recorded ?Confirmed ?Last Taken ?Type aspirin 81 mg tablet,delayed 81 mg PO DAILY 07/19/24 0 07/19/24 07/16/24 History release (Mukesh Low Dose Aspirin) atorvastatin 40 mg tablet 40 mg PO QPM 07/19/2407/16/24 History carvedilol 3.125 mg tablet 3.125 mg PO BID 07/19/24 Unknown History lisinopril 2.5 mg tablet 2.5 mg PO DAILY 07/19/2411/05 Unknown History nitroglycerin 0.4 mg sublingual 0.4 mg sublingual Q5M PRN heart 07/19/24 07/19/24 07/18/24 20:00 History tablet pain Allergies Allergy/AdvReac Type Severity Reaction Status Date / Time No Known Allergies Allergy Verified 07/23/22 10:01 Current Medications Generic Name Dose Route Start Last Admin Trade Name Yashq PRN Reason Stop Dose Admin Aspirin 81 mg 07/20/24 09:00 07/20/24 08:04 Aspirin 81 Mg Ec Tablet PO 81 mg DAILY MARYJO Administration Atorvastatin Calcium 40 mg 07/19/24 18:00 07/19/24 17:55 Atorvastatin 40 Mg Tablet PO 40 mg QPM MARYJO Administration Carvedilol 3.125 mg 07/19/24 21:00 07/20/24 08:04 Carvedilol 3.125 Mg Tablet PO 3.125 mg Q12H MARYJO Administration Clopidogrel Bisulfate 75 mg 07/19/24 17:43 07/20/24 08:04 Clopidogrel 75 Mg Tablet PO 75 mg DAILY MARYJO Administration Sodium Chloride 1,000 mls @ 100 mls/hr 07/19/24 15:00 07/20/24 08:06 Sodium Chloride 0.9% IV 100 mls/hr .Q10H MARYJO Administration Lisinopril 2.5 mg 07/20/24 09:00 07/20/24 08:05 Lisinopril 2.5 Mg Tablet PO 2.5 mg DAILY MARYJO Administration Nicotine 1 patch 07/19/24 20:04 07/20/24 08:04 Nicotine 21 Mg Patch TRANSDERMA 1 patch DAILY MARYJO Administration Pantoprazole Sodium 40 mg 07/20/24 09:00 07/20/24 08:[address] 40 Mg Tablet PO 40 mg DAILY MARYJO Administration PFSH Acute 2 PFSH: Medical History Polymyalgia rheumatica Left carpal tunnel syndrome Rotator cuff arthropathy of left shoulder Rotator cuff impingement syndrome of right shoulder Bilateral shoulder pain Social History Smoking and tobacco/nicotine status: never used tobacco/nicotine Alcohol intake: never Substance/Drug Use: never Vitals/I&O/Wt Last Vital Signs Temp 97.8 F 07/20/24 08:00 Pulse 79 07/20/24 08:00 Resp 17 07/20/24 08:00 BP 154/99 07/20/24 08:00 Pulse Ox 96 07/20/24 08:00 O2 Del Method Room Air 07/20/24 08:00 07/19/24 07/20/24 07/20/24 22:59 06:59 14:59 Intake Total 270 / 270 1000 / 1000 Output Total 875 / 875 Balance 270 / -605 -875 / -605 1000 / 1000 Weight last 48 hrs Weight 193 lb Weight 193 lb Weight 180 lb Physical Exam 2 Const: COMMON NORMALS: no acute distress and patient oriented x3 GENERAL APPEARANCE: cooperative and comfortable ORIENTATION/CONSCIOUSNESS: Yes awake, Yes oriented to person, Yes oriented to place and Yes oriented to time Chest: COMMONS NORMALS: normal inspection of the chest and normal palpation of entire chest wall CHEST: Yes Symmetrical chest wall rise Resp: COMMON NORMALS: normal respiratory effort, No retractions, No use of accessory muscles and clear to auscultation bilaterally EFFORT & INSPECTION: Yes symmetric chest movement AUSCULTATION: clear to auscultation bilaterally Cardio: COMMON NORMALS: regular rate, regular rhythm, S1 normal heart sound present, S2 normal heart sound present, No gallops present (Cardio), No clicks present (Cardio), No murmurs present (Cardio) and No rub (Cardio) RATE: r egular rate RHYTHM: regular rhythm HEART SOUNDS: S1 normal heart sound present and S2 normal heart sound present PERIPHERAL PULSES: radial pulses present Extremity: COMMON NORMALS: no pedal edema Neuro: COMMON NORMALS: patient oriented x3 and moves all extremities S ENSORIUM/ORIENTATION: Yes oriented to person, Yes oriented to place and Yes oriented to time Data 07/20/24 03:02 07/20/24 03:02 A&P Assessment and plan (1) CAD (coronary artery disease): (2) Chest pain: (3) HLD (hyperlipidemia): (4) History of WA (myocardial infarction): Plan Plan is for coronary angiogram today. Hemoglobin is normal. BUN 14, creatinine 1.0. He is currently on Protonix 40 mg daily. Continue aspirin, statin, Plavix, carvedilol. LDL is 145, will need escalation of statin from 40mg to 80mg if tolerated. PDMP PDMP Reviewed: Not Reviewed Consult Attestations 2 Medical Necessity Statement: Ischemic workup Coding Level of Care Code Acute Code for [facility] Diagnoses CAD (coronary artery disease) I25.119 Associated angina: with unspecified form of angina Coronary Disease-Associated Artery/Lesion type: unspecified vessel or lesion type [place] vs. transplanted heart: [place] heart Chest pain R07.9 Chest pain type: unspecified HLD (hyperlipidemia) E78.5 History of WA (myocardial infarction) I25.2
--- NOTE | 2024-07-20 12:00 | XACV_ITS ---
Exam Room: [facility] Ht: 170 cm Wt: 88 kg BSA: 2.06 m2 Gender: Male : 1965 Any Known Allergies: Nubaine Exam Priority: Routine Procedure(s): Procedure Description: Diagnostic procedure Procedure Description: PCI procedure Procedure Description: Drug Eluting Coronary Stent Procedure Description: PTCA Procedure Description: Miscellaneous Procedure Description: ACT Procedure Description: Coronary Angiography Lin CANO; Diagnostic Cath Status: Urgent Diagnostic Findings * Left main has luminal irregularity, LAD has luminal irregularity without significant stenosis. Left circumflex has luminal irregularity with chronically occluded first obtuse marginal which is small caliber in size, second obtuse marginal has severe in-stent restenosis which is eccentric calcified and 80%. It is the culprit vessel.. * First Obtuse Marginal Branch Segment: total occlusion, RAYSHAWN: 0 flow. This is a chronically occluded artery with severe in-stent restenosis appeared to be small caliber, it is not amenable to intervention and not the culprit vessel.. * Second Obtuse Marginal Branch Segment: previously treated, significant 80% restenosis, RAYSHAWN: 3 flow. * Coronary angiography shows left dominance. PCI Indication: New Onset Angina <= 2 months Interventional Findings * Second Obtuse Marginal Branch Segment: 80% stenosis treated with a AB TREK 3.00X12 RX BALLOON, NNEKA Urena ALEXX 3.0X12 JOSE, and NNEKA SWARTZ EUPHORA RX [id number] BALLOON. 0% residual stenosis, RAYSHAWN: 3 flow. Successful intervention. Conclusions 1. Left main has luminal irregularity, LAD has luminal irregularity without significant stenosis. Left circumflex has luminal irregularity with chronically occluded first obtuse marginal which is small caliber in size, second obtuse marginal has severe in-stent restenosis which is eccentric calcified and 80%. It is the culprit vessel.. 2. Second Obtuse Marginal Branch Segment was treated with a Balloon, Drug Eluting Stent, and Balloon. Recommendations * 1-Return to inpatient for close monitoring and routine cath care 2-Risk factor modification for secondary prevention 3-Statin and aspirin 81 mg life-long, if tolerated 4-Patient was pre-loaded with 300 mg of Plavix, continue Plavix 75mg p.o. daily for at least one year. We will assess at the end of one year again to continue if further or not 5-Continue optimal medical management 6-Follow up with Dr. Ceballos in four weeks and your primary care in 10 days. Diagnostic RX Recommendation: PCI w/o planned CABG Pressures Phase:Rest AO : 161 / 91 ( 114 ) @ 2:40:00 PM 178 / 96 ( 120 ) @ 3:03:00 PM Clinical Evaluation EBL: 5mL-10mL Procedural Details Procedure Consent Obtained. Pre-Procedure Time Out. Identified patient by full name and date of as verbalized by the patient/guarantor. Does the consent match the physician's order: Yes. Accurate & Complete Informed Consent: Yes. Inpatient/Outpatient History & Physical on Chart: Yes. If H&P is completed, is and addenduem needed: No. Visualize and Verify Site with Patient/Guarantor: N/A. Relevant Radiology Images available: Yes. The risks, benefits, and alternatives of sedation and/or procedure were discussed by physician. The patient agrees to continue. Procedure started. [facility] Clinical Fraility Score: 3: Managing Well. Motor Vehicle Inspector Indications: Suspected CAD/Unstable angina. Chest Pain Symptom Assessment: Typical Angina Symptoms. Cardiovascular Instability: No. Correct patient, site and procedure confirmed by cath team. PERRLA. Strong, equal hand gum maker bilaterally. Lungs clear x 5 lobes. IV Site on Arrival: 22 gauge in the right anticubital. IV Fluids: 0.9% NaCl at KVO. 500 mL infused prior to syrup machine laborer. Pre Procedural Pulses: bilateral radial was 3+. Oxygen started at 2liters/min via nasal canula. right groin was prepped with chloroprep then draped in the usual sterile fashion. right radial was prepped with chloroprep then draped in the usual sterile fashion. Physician notified. Patient's family unavailable. Equipment: 6F - Radial. Cardiac Cath Pack. ACIST Manifold Kit Model BT 2000. Heparinized Saline (2 units/mL), 1000 mL bag. Physician arrived. Physician scrubbed in. Immediate Pre-Procedure Time Out. Correct Patient: Yes; Correct Procedure: Yes; Correct Site: Yes; Correct Patient Position: Yes; Correct Supplies: Yes; Dried Flammable Prep: Yes; Blood Products Available: N/A. Lidocaine 1% infiltrated to the right radial. Arterial access obtained. A 5 mohawk TIG catheter in over the exchange J wire. Multiple views taken of left coronary artery. Catheter redirected to the RCA. Multiple views taken of right coronary artery. Catheter removed over the exchange J wire. 6 mohawk XB 3 guide catheter was inserted over the exchange J wire. Runthrough guidewire was advanced through the guide catheter to lesion in the OM-2. Inflation number : 1 A AB TREK 3.00X12 RX BALLOON was prepped and advanced across the 2nd Ob Naye , then inflated to 6 JOHN for 0:10 seconds. Inflation number: 2 The AB TREK 3.00X12 RX BALLOON was reinflated across the 2nd Ob Naye, to 14 JOHN for 0:11 seconds. Balloon out. Inflation Number : 3 A NNEKA R ALEXX 3.0X12 JOSE -Lot Number# [id number] Exp. was prepped and advanced across the 2nd Ob Naye. The stent was deployed at 14 JOHN for 0:14 seconds. Stent balloon out over wire. Inflation number : 4 A MDT NC EUPHORA RX [id number] BALLOON was prepped and advanced across the 2nd Ob Naye , then inflated to 12 JOHN for 0:12 seconds. Inflation number: 5 The MDT NC EUPHORA RX [id number] BALLOON was reinflated across the 2nd Ob Naye, to 12 JOHN for 0:11 seconds. Balloon out. ACT drawn. Results 312 seconds. Therapeutic limits - pre-heparin administration 90-150 seconds and monitoring heparin during a vascular procedure >250 seconds. Results checked. Wire redirected to the 1st OM. Unable to cross the lesion in OM-1. Runthrough wire out. Guide catheter out. Dr. Ceballos scrubbed out. A TR Band was successful obtaining hemostatsis at the Right Radial artery insertion site. Post Procedure: Pulses reassessed and unchanged. PERRLA. Strong, equal hand gum maker bilaterally. No VTE prophylaxis required. Medication's Wasted: Lidocaine 1% = 18 mL. Medication's Wasted: Nitro = 49.6 mg. Medication's Wasted: Heparin = 1000 units. Total IV fluids: 40 mL. Post-op diagnosis: JOSE x 1 to OM-2. PCI Indication: CAD (without ischemic symptoms). Complications: none. Estimated blood loss: 5mL-10mL. Responsiveness - Normal response to verbal stimuli; alert and oriented, PERRLA. Airway - Unaffected, no intervention required; spontaneous ventilation. Circulation: W/N/L, pulses unchanged. Nausea/Vomiting: No. Procedure completed. Patient transferred by bed to 1st floor. Vital chart was stopped. Access Site Site: Right Radial artery Sheath Size: 6 Fr Hemostasis Method: TR Band Hemostasis Success: Successful Procedure Medications Start: 1:35 PM Stop: 1:35 PM Medication: Versed Amount: 1 mg Route: I.V. Start: 1:35 PM Stop: 1:35 PM Medication: Fentanyl Amount: 50 mcg Route: I.V. Start: 1:36 PM Stop: 1:36 PM Medication: Nitrogylcerin Amount: 200 mcg Route: I.A. Start: 1:36 PM Stop: 1:36 PM Medication: Versed Amount: 1 mg Route: I.V. Start: 1:36 PM Stop: 1:36 PM Medication: Fentanyl Amount: 25 mcg Route: I.V. Start: 1:37 PM Stop: 1:37 PM Medication: Heparin Amount: 5000 units Route: I.V. Start: 1:44 PM Stop: 1:44 PM Medication: Fentanyl Amount: 25 mcg Route: I.V. Start: 1:45 PM Stop: 1:45 PM Medication: Heparin Amount: 3000 units Route: I.V. Start: 2:00 PM Stop: 2:00 PM Medication: Zofran (ondansetron) Amount: 4 mg Route: I.V. Start: 2:01 PM Stop: 2:01 PM Medication: Nitrogylcerin Amount: 200 mcg Route: I.C. Start: 2:17 PM Stop: 2:17 PM Medication: Plavix Amount: 300 mg Route: P.O. I, the attending physician, have reviewed and verified all procedure medications. Yes, all medications given per verbal order History/Risk Factors Hypertension: No Dyslipidemia: Yes Peripheral Arterial Disease (PAD): No Myocardial Infarction (DE): Yes Obesity: No Renal Disease: No Tobacco Use: Never Prior Interventions PCI: Yes CABG: No Valve Surgery: No Date of PCI: 03/14/2018 Report Signatures Finalized by Erick Ceballos MD on 07/20/2024 02:34 PM
--- NOTE | 2024-07-20 13:25 | W.PM.OPSUD ---
Surgery/Procedure H&P Update DATE OF PROCEDURE: July 20, 2024 DATE H&P PERFORMED: 07/20/24 H&P UPDATE INFORMATION: I have reviewed H&P completed within last 30 days, I have examined patient prior to procedure and No changes to prior documentation PREOP DIAGNOSIS: Unstable angina PRIMARY INDICATION FOR PROCEDURE: Unstable angina in a patient with worsening of shortness of breath chest pain and history of coronary artery disease with prior stent PLANNED PROCEDURE: Operation Date: 07/20/24 12:30 Proposed Procedures p Cardiac Catheterization(Left) - Erick Ceballos MD PATIENT REASSESSED PRIOR TO SEDATION, WITH NO CHANGE NOTED: Yes PHYSICAL EXAM: alert, oriented x 3, clear to auscultation bilaterally, regular rate & rhythm and operative site marked AIRWAY EVAL/ANESTHESIA PLAN: ASA II, Risks, benefits & alternatives of sedation and/or procedure discussed and Patient agrees to continue as planned ADDITIONAL INFORMATION: Patient has been explained all risk-benefit and alternative for the procedure. Patient 2% risk of stroke major bleed. Patient understand 5% risk of infection hematoma bleeding urgent or emergent vascular bypass surgery contrast induced nephropathy. Patient agrees and would like to proceed with it.
--- NOTE | 2024-07-20 13:27 | PM.PN ---
Subjective Subjective: seen this am no acute events overnight going for cath today Vitals/I&O/Wt Last Vital Signs Temp 97.8 F 07/20/24 12:00 Pulse 78 07/20/24 12:00 Resp 19 H 07/20/24 12:00 BP 149/99 07/20/24 12:00 Pulse Ox 95 07/20/24 12:00 O2 Del Method Room Air 07/20/24 12:00 07/19/24 07/20/24 07/20/24 22:59 06:59 14:59 Intake Total 270 / 270 1000 / 1000 Output Total 875 / 875 Balance 270 / 270 -875 / -605 1000 / 1000 Weight last 48 hrs Weight 87.543 kg Weight 87.543 kg Weight 81.647 kg Physical Exam Narrative: General: Alert oriented x3, HEENT: Normocephalic, atraumatic, EOMI, breathing room air. Cardio: Regular rate rhythm, normal S1-S2, Respiratory: Good bilateral air entry, no wheezes no rhonchi appreciated GI: Abdomen soft, nontender, nondistended, bowel sounds + Behavior: Appropriate and cooperative Extremities: Pulses 2+, no edema, no cyanosis, Data 07/20/24 03:02 07/20/24 03:02 A&P Assessment and plan (1) Chest pain: (2) CAD (coronary artery disease): (3) Polymyalgia rheumatica: (4) HLD (hyperlipidemia): (5) History of SC (myocardial infarction): (6) Status post percutaneous transluminal angioplasty (PATIENT INTAKE REPRESENTATIVE) with stent placement: Plan #Typical chest pain, unstable angina #GERD #History of hiatal hernia #History of polymyalgia rheumatica #Known CAD status post PCI x 2, status post 2 MIs #Hyperlipidemia #Intermittent dark stools every 1 to 3 months if taking aspirin Plavix together however currently not having any issues - Troponins ordered. [place] at 2 hours negative ? Continue aspirin atorvastatin carvedilol lisinopril ? Nitropaste every 6 hours as needed if chest pain recurs ? GI cocktail to be ordered if chest pain recurs ? Patient quite anxious and worried at this time after discussing his care with myself. Blood pressure 178/111. I believe this is due to stress. He does not carry a history of hypertension. We will continue to monitor and recheck blood pressure in 30 minutes. ? He does state that he has had intermittent dark stools in the past especially when he takes both aspirin and Plavix which will occur every 1 to 3 months. I recommended him further workup with EGD colonoscopy however he states he does not want to do those as this is stressing him out because he does not want to be diagnosed with cancer. He also further states that he also would like to know what the diagnosis is. At this time he is undecided on further procedures. This may be done as an outpatient at a later time. Patient does not have active rectal bleed at this time. ? I will order Protonix 40 oral daily ? Repeat EKG if chest pressure recurs. ? Most likely his chest pain is secondary to cardiac cause given his presentation of nausea diaphoresis and the fact that it was relieved by nitro. ? I will discuss with cardiology prior to ordering stress test. Consult cardiology. - Check TSH, hemoglobin A1c, lipid profile. Full code DVT prophylaxis: Heparin SQ twice daily 07/20/2024 continue lovenox x48 hours continue aspirin, plavix, atorvastatin continue protonix 40 daily plan for coronary angiogram today PDMP PDMP Reviewed: Not Reviewed Attestations Medical Necessity Statement*: > 2 midnight stay for mgmt of unstable angina Diagnoses Chest pain R07.9 Chest pain type: unspecified CAD (coronary artery disease) I25.119 Associated angina: with unspecified form of angina Coronary Disease-Associated Artery/Lesion type: unspecified vessel or lesion type [place] vs. transplanted heart: platinum heart Polymyalgia rheumatica M35.3 HLD (hyperlipidemia) E78.5 History of SC (myocardial infarction) I25.2 Status post percutaneous transluminal angioplasty (PATIENT INTAKE REPRESENTATIVE) with stent placement Z95.820
[2024-07-20] MEDS: atorvastatin 40 mg Tablet PO (17:57)
[2024-07-20] MEDS: HYDROcodone-acetaminophen 5-325 mg Tablet 1 TAB PO (17:57)
[2024-07-21] VITALS: BP 115/91; PULSE 78; RESP 19; TEMP 36.5; O2SAT 95
[2024-07-21 03:40] LABS: Basophils # 0.1 10^3/uL (0.0-0.1); Basophils % 0.3 %; Eosinophils # 0.3 10^3/uL (0.0-0.8); Eosinophils % 1.9 %; Hematocrit 49.6 % (37-53); Lymphocytes # 1.6 10^3/uL (0.8-4.8); Lymphocytes % 10.6 %; Mean Corpuscular HGB Conc 31.9 g/dL (30-55); Mean Corpuscular Hemoglobin 30.9 pg (27-33); Mean Corpuscular Volume 96.9 fl (82-101); Monocytes # 0.9 10^3/uL (0.2-0.9); Monocytes % 6.3 %; Neutrophils # 11.98 10^3/uL (1.8-7.7); Neutrophils % 80.4 %; Nucleated Red Blood Cells % 0 %; Platelet Count 317 10^3/cmm (157-399); Red Blood Count 5.12 10^6/uL (3.85-5.65); Red Cell Distribution Width 14.2 % (12.1-15.1); White Blood Count 14.93 10^3/uL (3.29-11.43)
[2024-07-21 04:00] VITALS: BP 119/92; PULSE 74; RESP 17; TEMP 36.9; O2SAT 97
[2024-07-21 05:26] LABS: Anion Gap 17.3 (5-19); Blood Urea Nitrogen 15 mg/dL (6-20); Calcium 9.2 mg/dL (8.5-10.5); Carbon Dioxide 22 mmol/L (22-29); Chloride 107 mmol/L (98-107); Creatinine Clr Calc Pharmacy 77.8418; Glucose 128 mg/dL (65-115); Magnesium 2.1 mg/dL (1.7-2.3); Osmolality Calculated 296 mOsm/kg (285-295); Potassium 4.3 mmol/L (3.5-5.1); Sodium 142 mmol/L (136-145)
[2024-07-21 06:00] VITALS: PULSE 79
[2024-07-21 07:42] VITALS: BP 123/94; PULSE 80; RESP 17; TEMP 36.8; O2SAT 98
[2024-07-21] MEDS: nicotine 21 mg Patch 1 PATCH TRANSDERMA (10:11)
[2024-07-21] MEDS: aspirin 81 mg EC Tablet PO (10:11)
[2024-07-21] MEDS: clopidogrel 75 mg Tablet PO (10:11)
[2024-07-21] MEDS: pantoprazole DR 40 mg Tablet PO (10:12)
[2024-07-21] MEDS: lisinopril 2.5 mg Tablet PO (10:12)
[2024-07-21] MEDS: carvedilol 3.125 mg Tablet PO (10:12)
[2024-07-21 11:48] VITALS: BP 123/94; PULSE 86; RESP 16; O2SAT 94
--- NOTE | 2024-07-21 11:50 | PC.NURSE ---
discharge medications provided to pt by meds to beds program.
--- NOTE | 2024-07-21 12:06 | PC.NURSE ---
pt seen by dr phillips this morning.awaiting dr rizzo.pt becoming agitated.states he is leaving now.pt is stable.dr rizzo notified.discharge instructions given and explained.pt verb understanding of instructions.discharged ambulatory to exit per request.s.o. to drive pt home.
--- NOTE | 2024-07-21 15:04 | P.DS_ITS ---
Discharge Providers Date of Admission: 07/20/24 09:44 Date of Discharge: July 21, 2024 Attending Provider at Admission: Jaja Butterfield MD Attending Provider at Discharge: Jaja Butterfield MD Primary Care Provider: Yen Camarena Diagnoses at Discharge Discharge Diagnosis (1) Chest pain: Status: Acute Qualifiers: Chest pain type: unspecified Qualified Code(s): R07.9 - Chest pain, unspecified (2) CAD (coronary artery disease): Status: Acute Qualifiers: Associated angina: with unspecified form of angina Coronary Disease-Associated Artery/Lesion type: unspecified vessel or lesion type [place] vs. transplanted heart: [place] heart Qualified Code(s): I25.119 - Athe rosclerotic heart disease of [place] coronary artery with unspecified angina pectoris (3) Polymyalgia rheumatica: Status: Acute (4) HLD (hyperlipidemia): Status: Acute (5) History of MS (myocardial infarction): Status: Acute (6) Status post percutaneous transluminal angioplasty (SERVICE CLEANER) with stent placement: Status: Acute Reason for Visit Reason for Visit: CP SOB Hospital Course Hospital Course Patient presented to the hospital and was admitted for unstable angina. Underwent coronary angiogram and underwent drug-eluting stent to obtuse marginal 2 with excellent angiographic result. He will be sent home on aspirin Plavix atorvastatin carvedilol lisinopril and Protonix. Patient would like to get evaluated for hemorrhoids and intermittent dark stools. However he does not want to pursue workup in the hospital and would like to see general surgery for routine EGD colonoscopy. He states as long as he takes an antacid he stays okay otherwise every 1 to 3 months he may see dark stools. Hemoglobin has been stable throughout hospitalization and no evidence of rectal bleeding. Discussed with cardiology and made them aware of all the above prior to coronary angiogram. Patient will be sent home on aspirin Plavix Protonix. He will be given referral to general surgery as an outpatient for routine EGD colonoscopy outpatient. Please see H&P for further details. Physical Exam Narrative: General: Alert oriented x3, HEENT: Normocephalic, atraumatic, EOMI, breathing room air. Cardio: Regular rate rhythm, normal S1-S2, Respiratory: Good bilateral air entry, no wheezes no rhonchi appreciated GI: Abdomen soft, nontender, nondistended, bowel sounds + Behavior: Appropriate and cooperative Extremities: Pulses 2+, no edema, no cyanosis, Discharge Data Studies Completed and Pending Completed Studies During Hospitalization Category Date Time Status FINANCIAL BUSINESS ANALYST request for service Routine Exams 07/20/24 12:00 Completed XR chest 1V portable [id number] Urgent Exams 07/19/24 09:47 Completed CV. echo complete* [id number] Routine Ultrasound 07/19/24 17:43 Completed Pending at discharge Category Date Time Status Sestamibi Stress Test Request Routine Exams 07/19/24 17:43 Stop Req Radiology Impressions Chest X-Ray 07/19/24 09:47 IMPRESSION: No acute chest abnormality. Laboratory Results WBC 14.93 10^3/uL (3.29-11.43) H 07/21/24 03:00 RBC 5.12 10^6/uL (3.85-5.65) 07/21/24 03:00 Hgb 15.80 g/dL (11.27-16.99) 07/21/24 03:00 Hct 49.6 % (37-53) 07/21/24 03:00 MCV 96.9 fl (82-101) 07/21/24 03:00 MCH 30.9 pg (27-33) 07/21/24 03:00 MCHC 31.9 g/dL (30-55) 07/21/24 03:00 RDW 14.2 % (12.1-15.1) 07/21/24 03:00 Plt Count 317 10^3/cmm (157-399) 07/21/24 03:00 MPV 9.0 fL (7.4-10.4) 07/21/24 03:00 Neut % (Auto) 80.4 % 07/21/24 03:00 Lymph % (Auto) 10.6 % 07/21/24 03:00 [place] % (Auto) 6.3 % 07/21/24 03:00 Eos % (Auto) 1.9 % 07/21/24 03:00 Baso % (Auto) 0.3 % 07/21/24 03:00 Neut # (Auto) 11.98 10^3/uL (1.8-7.7) H 07/21/24 03:00 Lymph # (Auto) 1.6 10^3/uL (0.8-4.8) 07/21/24 03:00 [place] # (Auto) 0.9 10^3/uL (0.2-0.9) 07/21/24 03:00 Eos # (Auto) 0.3 10^3/uL (0.0-0.8) 07/21/24 03:00 Baso # (Auto) 0.1 10^3/uL (0.0-0.1) 07/21/24 03:00 Nucleated RBC % (auto) 0 % 07/21/24 03:00 Nucleated RBCs # 0.0 /100WBC 07/21/24 03:00 Sodium 142 mmol/L (136-145) 07/21/24 04:49 Potassium 4.3 mmol/L (3.5-5.1) 07/21/24 04:49 Chloride 107 mmol/L (98-107) 07/21/24 04:49 Carbon Dioxide 22 mmol/L (22-29) 07/21/24 04:49 Anion Gap 17.3 (5-19) 07/21/24 04:49 BUN 15 mg/dL (6-20) 07/21/24 04:49 Creatinine 1.1 mg/dL (0.7-1.2) 07/21/24 04:49 GFR Calculation 69.0 mL/min (90-130) L 07/21/24 04:49 Glucose 128 mg/dL (65-115) H 07/21/24 04:49 Estimat Average Glucose 131 07/19/24 10:04 Hemoglobin A1c 6.2 % (4.0-6.0) H 07/19/24 10:04 Calculated Osmolality 296 mOsm/kg (285-295) H 07/21/24 04:49 Calcium 9.2 mg/dL (8.5-10.5) 07/21/24 04:49 Magnesium 2.1 mg/dL (1.7-2.3) 07/21/24 04:49 Total Bilirubin 0.4 mg/dL (0.15-1.2) 07/20/24 03:02 AST 16 U/L (0-40) 07/20/24 03:02 ALT 12 U/L (0-41) 07/20/24 03:02 Alkaline Phosphatase 110 U/L (40-130) 07/20/24 03:02 Troponin T Baseline 14 ng/L (0-15) 07/19/24 10:04 Troponin T 120 Minute 13.58 ng/L (0-15) 07/19/24 11:57 Delta Troponin T -0.42 ABS# (0-10) L 07/19/24 11:57 Troponin T Hi Sens 6Hr 16.12 ng/L (0-15) H 07/19/24 15:48 Troponin T Hi Sens 6Hr Delta 2.12 ng/L (0-12) 07/19/24 15:48 Total Protein 6.7 g/dL (6.6-8.7) 07/20/24 03:02 Albumin 3.6 g/dL (3.5-5.2) 07/20/24 03:02 Globulin 3.1 g/dL (1.3-4.6) 07/20/24 03:02 Triglycerides 136 mg/dL (0-150) 07/19/24 10:04 Cholesterol 212 mg/dL (0-200) H 07/19/24 10:04 LDL Cholesterol, Calc 145 mg/dL (50-129) H 07/19/24 10:04 HDL Cholesterol 40 mg/dL (60-100) L 07/19/24 10:04 LDL/HDL Ratio 3.63 RATIO (0.00-3.22) H 07/19/24 10:04 Cholesterol/HDL Ratio 5.30 mg/dL (1.0-5.00) H 07/19/24 10:04 TSH 3.89 uIU/mL (0.27-4.20) 07/19/24 10:04 Vitals Last Vital Signs Temp 98.2 F 07/21/24 07:42 Pulse 86 07/21/24 11:48 Resp 16 07/21/24 11:48 BP 123/94 07/21/24 11:48 Pulse Ox 94 07/21/24 11:48 O2 Del Method Room Air 07/21/24 07:42 Discharge Plan Discharge Patient Disposition: Home Condition: Stable Prescriptions: New clopidogrel 75 mg Tablet 75 mg PO DAILY Qty: 30 0RF pantoprazole 40 mg Tablet,Delayed Release (Dr/Ec) 40 mg PO DAILY Qty: 30 0RF Continued nitroglycerin 0.4 mg Tablet, Sublingual 0.4 mg SUBLINGUAL Q5M PRN (Reason: heart pain) Rx Instructions: do not exceed 3 doses per episode aspirin [[place] Low Dose Aspirin] 81 mg Tablet,Delayed Release (Dr/Ec) 81 mg PO DAILY Qty: 30 0RF atorvastatin 40 mg Tablet 40 mg PO QPM Qty: 30 0RF carvedilol 3.125 mg Tablet 3.125 mg PO BID Qty: 60 0RF Rx Instructions: must administer with a meal/food lisinopril 2.5 mg Tablet 2.5 mg PO DAILY Qty: 30 0RF Discharge Orders: Discharge Order (Routine); Ordered 07/21/24 Ordered By: Jaja Butterfield Referrals: Sanket Bundy MD [Physician, General Surgery] - 2 weeks Referral Note: We have notified your physician's clinic of the need for a follow-up appointment to be scheduled. If you have not heard from them within the next 2 business days, please call them directly. Erick Ceballos MD [Physician, Cardiology] - 1 month Referral Note: We have notified your physician's clinic of the need for a follow-up appointment to be scheduled. If you have not heard from them within the next 2 business days, please call them directly. next 2 business days, Katherine Sellers FNP [Nurse Practitioner, Cardiology] - 7-10 days Referral Note: We have notified your physician's clinic of the need for a follow-up appointment to be scheduled. If you have not heard from them within the next 2 business days, please call them directly. Yen Camarena [Primary Care Provider, Family Practice] - 4-7 days Referral Note: We have notified your physician's clinic of the need for a follow-up appointment to be scheduled. If you have not heard from them within the next 2 business days, please call them directly. Discharge Diet: Cardiac Discharge Activity: Limit activity as instructed Patient Instructions: Clopidogrel (By mouth) (Plavix), Pantoprazole (By mouth) (Protonix), Chest Pain Stoplight, Opioid Safety, Post Angiogram Home Care Instructions Discharge Attestations Time Spent in Discharge Care*: greater than 30 min Quality Metrics Clinical Quality Measures [ No reported AMI, CVA or VTE this stay] Coding Level of Care Code [facility] Diagnoses Chest pain R07.9 Chest pain type: unspecified CAD (coronary artery disease) I25.119 Associated angina: with unspecified form of angina Coronary Disease-Associated Artery/Lesion type: unspecified vessel or lesion type [place] vs. transplanted heart: [place] heart Polymyalgia rheumatica M35.3 HLD (hyperlipidemia) E78.5 History of MS (myocardial infarction) I25.2 Status post percutaneous transluminal angioplasty (SERVICE CLEANER) with stent placement Z95.820
== END 2024-07-21 12:09 | disposition home or self-care (01) | DRG 322 ==
LOC: ER 12:49 → CSU 18:24 → ER IP 07-20 06:06
PROVIDERS: Internal Medicine Cardiovascular Disease; Admitting Provider Internal Medicine; Emergency Provider Physician Assistant; PCP Nurse Practitioner Family; Visit Provider Internal Medicine
PROC: 027034Z Dilation of Coronary Artery, One Artery with Drug-eluting Intraluminal Device, Percutaneous Approach (ICD-10-PCS; principal; 2024-07-20 12:30)
PROC: 027034Z Dilation of Coronary Artery, One Artery with Drug-eluting Intraluminal Device, Percutaneous Approach (ICD-10-PCS; 2024-07-20 12:30)
DX: T82.855A Stenosis of coronary artery stent, initial encounter (principal); I25.110 Atherosclerotic heart disease of native coronary artery with unstable angina pectoris; Y71.8 Miscellaneous cardiovascular devices associated with adverse incidents, not elsewhere classified; M35.3 Polymyalgia rheumatica; E78.5 Hyperlipidemia, unspecified; I25.2 Old myocardial infarction; R19.5 Other fecal abnormalities; Z79.82 Long term (current) use of aspirin; Z79.02 Long term (current) use of antithrombotics/antiplatelets; Z59.71 Insufficient health insurance coverage; F17.210 Nicotine dependence, cigarettes, uncomplicated; M75.102 Unspecified rotator cuff tear or rupture of left shoulder, not specified as traumatic; M75.101 Unspecified rotator cuff tear or rupture of right shoulder, not specified as traumatic; G56.02 Carpal tunnel syndrome, left upper limb; K21.9 Gastro-esophageal reflux disease without esophagitis
CPT/HCPCS: 36415; 71045; 80048; 80053; 80061; 83036; 83735; 84443; 84484; 85025; 85347; 93005; 93306; 93454; 96360; 96361; 96372; 96374; 96375; 99152; 99153; 99285; C1725; C1769; C1874; C1887; C1894; C9600; G0378; J1644; J1650; J2250; J3010; J3490; J7030; J9999; Q9967